=== PATIENT | female | born 1985 | race Caucasian/White ===

== ENCOUNTER 2020-04-27 08:57 | Emergency (ER) | payer MEDICAID, SELFPAY ==
[2020-04-27] VITALS (8 sets, daily range): BP systolic 112–152; BP diastolic 78–98; PULSE 88–111; RESP 16–20; TEMP 36.7; O2SAT 98–100
--- NOTE | ~2020-04-27 | CT_ITS ---
EXAMINATION: CT abdomen pelvis w con DATE: 04/27/2020 10:50 INDICATION: Lower abdominal pain TECHNIQUE: Computed tomography (CT) of the abdomen and pelvis was performed with 100 cc Omnipaque 350 intravenous contrast. The dose-length product was 1003.41 mGy-cm. Automated exposure control and iterative reconstruction technique were employed. COMPARISON: CT dated 08/11/2008 FINDINGS: Lung bases are unremarkable. Heart size normal. No significant pleural or pericardial effus ion. No significant vascular abnormality. No lymphadenopathy. Fat-containing left inguinal hernia. Fatty infiltration of the liver. Status post cholecystectomy. The spleen, pancreas, adrenal glands an d kidneys are unremarkable. Gallbladder is surgically absent. There is an involuting corpus luteal cy st in the left ovary. Normal appendix. Trace free fluid in the pelvis, likely physiologic. Uterus is surgically absent. No acute osseous abnormality. No free air. IMPRESSION: 1. No acute abdominal abnormality. 2: Hepatic steatosis. 3: Involuting corpus luteal cyst of the left ovary. Trace free fluid in the pelvis, likely physiologi c. 4: Fat-containing left inguinal hernia. Reviewed, dictated and finalized at location A. [employer] IMPRESSION: 1. No acute abdominal abnormality. 2: Hepatic steatosis. 3: Involuting corpus luteal cyst of the left ovary. Trace free fluid in the pel vis, likely physiologic. 4: Fat-containing left inguinal hernia.
--- NOTE | 2020-04-27 09:51 | ED.ABDPAIN ---
HPI - Abdominal Pain General Chief Complaint: Abdominal Pain Stated Complaint: abd pain Time Seen by Provider: 04/27/20 09:05 Source: patient Mode of arrival: ambulatory Limitations: no limitations History of Present Illness HPI narrative: This patient is a 34 year old female with history of Ulcerative colitis and chronic back pain who presents for evaluation of mid and right lower abdominal pain. She reports constant sharp abdominal pain located to right lower abdomen and periumbilical for 2 days. She also reports nausea and diarrhea. She denies any bloody emesis or bloody stolls. She also denies fever or chills. She has not been taking anything for pain. Related Data Allergies Allergy/AdvReac Type Severity Reaction Status Date / Time ketorolac [From Toradol] Allergy Unknown Verified 04/27/20 09:22 nitrofurantoin Allergy Unknown Verified 04/27/20 09:22 [From Macrobid] Penicillins Allergy Unknown Verified 04/27/20 09:22 propranolol [From Inderal LA] Allergy Unknown Verified 04/27/20 09:22 topiramate [From Topamax] Allergy Unknown Verified 04/27/20 09:22 Review of Systems Review of Systems: All systems reviewed & are unremarkable except as noted in HPI and below Constitutional: Constitutional: Denies chills and Denies fever(s) ENT: Denies nasal congestion Cardiovascular: Cardiovascular: Denies chest pain Respiratory: Respiratory: Denies dyspnea Gastrointestinal: Gastrointestinal: Reports abdominal pain, Reports diarrhea, Reports nausea and Reports vomiting Musculoskeletal: Musculoskeletal: Reports back pain [facility] Past Medical History Medical History (Updated 04/27/20 @ 12:35 by Quita Bishop MD) Ulcerative colitis Surgical History Surgical History (Updated 04/27/20 @ 12:33 by Quita Bishop MD) History of cholecystectomy Social History Social History (Updated 04/27/20 @ 12:33 by Quita Bishop MD) Smoking status: Former smoker Tobacco type: cigarettes Gender identity (if verbalized by the patient): Female Exam Const: General: alert Orientation/consciousness: patient oriented x3 Eyes: EOM: EOMs intact bilaterally Resp: Effort & Inspection: normal respiratory effort and no retractions Auscultation: clear to auscultation bilaterally Cardio: Rate: regular rate Rhythm: regular rhythm Heart sounds: no murmurs GI: GI Palp: Yes Soft to palpation, Yes Tenderness to palpation present (GI) (diffuse), No Guarding due to palpation present (GI) and No Rigid due to palpation Auscultation: normal bowel sounds Skin: General skin exam: normal color Rashes: no rashes Neuro: General: patient oriented x3, moves all extremities and CN's II-XI intact bilaterally Gait exam (Neuro): Normal gait present Psych: Mental Status: mental status grossly normal Affect: normal affect Course Reevaluation(s) Reevaluation #1: I Discussed with patient CT shows ovary cyst. I Discussed discharge plan. Date: 04/27/20 Time: 12:34 Vital Signs Vital signs: Vital Signs Temperature 98.0 F 04/27/20 09:15 Pulse Rate 111 H 04/27/20 09:15 Respiratory Rate 20 04/27/20 09:15 Blood Pressure 152/98 H 04/27/20 09:15 Pulse Oximetry 98 04/27/20 09:15 Temperature 98.0 F 04/27/20 09:15 Pulse Rate 88 04/27/20 12:47 Respiratory Rate 16 04/27/20 12:47 Blood Pressure 140/83 04/27/20 12:47 Pulse Oximetry 98 04/27/20 12:47 MDM - Abdominal Pain Lab Data Attestation: I reviewed the patient's lab results. Result diagrams: 04/27/20 09:47 04/27/20 09:47 Labs: Lab Results 04/27/20 04/27/20 04/27/20 Range/Units 09:47 09:47 09:47 WBC 11.0 H (4.5-10.0) K/mm3 RBC 3.80 L (4.2-5.4) M/mm3 Hgb 10.4 L (12.0-15.0) g/dL Hct 32.6 L (37.0-47.0) % MCV 85.8 (80-100) fl MCH 27.4 (26-34) pg MCHC 31.9 L (32-36) g/dl RDW 14.5 (11.5-14.5) % Plt Count 508 H (150-375) k/mm3 MPV 9.8 (7.4-10.4) fl I
[2020-04-27] MEDS: ONDANSETRON INJ 4 MG/2 ML VIAL IV PUSH (09:52)
[2020-04-27] MEDS: LACTATED RINGERS 1,000 ML 999 ML IV CONT (09:53)
[2020-04-27 10:10] LABS: Basophils Absolute Auto 0.1 K/mm3 (0.0-0.1); Basophils Percent Auto 0.5 % (0.2-1.2); Eosinophils Absolute Auto 0.1 K/mm3 (0-0.3); Eosinophils Percent Auto 1.2 % (0-4.4); Hematocrit 32.6 % (37.0-47.0); Hemoglobin 10.4 g/dL (12.0-15.0); Immature Granulocyte Absolute 0.05 K/mm3 (0.00-0.031); Immature Granulocyte Percent A 0.5 % (0-0.5); Lymphocytes Absolute Auto 2.91 K/mm3 (0.9-3.2); Lymphocytes Percent Auto 26.5 % (18.3-44.2); Mean Corpuscular HGB Conc 31.9 g/dl (32-36); Mean Corpuscular Hemoglobin 27.4 pg (26-34); Mean Corpuscular Volume 85.8 fl (80-100); Mean Platelet Volume 9.8 fl (7.4-10.4); Monocytes Absolute Auto 0.8 K/mm3 (0.1-0.6); Neutrophils Absolute Auto 7.1 K/mm3 (1.3-6.7); Neutrophils Percent Auto 64.3 % (45.5-73.1); Platelet Count Result 508 k/mm3 (150-375); Red Cell Distribution Width 14.5 % (11.5-14.5)
[2020-04-27 10:14] LABS: Add Urine Microscopic? YES; Appearance Urine Cloudy (Clear); Bacteria Urine 1+ /hpf; Bilirubin Urine Negative (Negative); Blood Urine 1+ (Negative); Color Urine Straw (Yellow); Glucose Urine UA 1+ mg/dL (Negative); Ketones Urine Negative (Negative); Leukocyte Esterase Ur Negative LEU/UL (Negative); Mucus Urine Rare /lpf; Nitrate Urine Negative (Negative); Protein Urine Negative (Negative); RBC Urine 0-2 /hpf (0-2); Specific Grav Ur 1.011 (1.001-1.035); Squamous Epithelial Cell Urine Many /hpf (Few); Urobilinogen Urine Negative mg/dL (<2.0)
[2020-04-27 10:21] LABS: Alanine Aminotransferase 27 U/L (4-35); Albumin Level 4.1 g/dL (3.5-5.1); Alkaline Phosphatase 78 U/L (38-126); Anion Gap 9 mmol/L (8-16); Aspartate Amino Transferase 25 U/L (14-36); Bilirubin,Total 0.3 mg/dL (0.2-1.3); Blood Urea Nitrogen 10 mg/dL (7-17); Calcium 9.2 mg/dL (8.4-10.2); Carbon Dioxide 23 mmol/L (22-30); Chloride 104 mmol/L (98-107); Estimated Glomerular Filt Rate > 60; Glucose 174 mg/dL (65-105); Lipase 94 U/L (23-300); Potassium 4.2 mmol/L (3.4-5.0); Sodium 136 mmol/L (137-145)
[2020-04-27 10:53] LABS: Lactic Acid Reflex 1.9 mmol/L (0.7-2.1)
[2020-04-27] MEDS: HYDROmorphone HCL INJ (*CRX) 1 MG/ML SYR 0.5 MG IV PUSH (12:07)
== END 2020-04-27 12:48 | disposition home or self-care (01) ==
PROVIDERS: Emergency Provider General Practice
DX: K52.9 Noninfective gastroenteritis and colitis, unspecified (principal); Z87.891 Personal history of nicotine dependence; K76.0 Fatty (change of) liver, not elsewhere classified; N83.12 Corpus luteum cyst of left ovary; K40.90 Unilateral inguinal hernia, without obstruction or gangrene, not specified as recurrent
CPT/HCPCS: 36415; 74177; 80053; 81001; 83605; 83690; 85025; 96361; 96374; 96375; 99284; J0131; J1170; J2405; J7120; Q9967